=== PATIENT | female | born 1980 | race Caucasian/White ===

== ENCOUNTER 2016-12-14 22:10 | Emergency (ER) | payer BC ==
[~2016-12-14] VITALS: Ht 165.1 cm; Wt 88.5 kg
== END 2016-12-15 00:25 | disposition short-term general hospital (02) ==
LOC: ER 22:10
DX: N17.9 Acute kidney failure, unspecified (principal); D64.9 Anemia, unspecified; E87.5 Hyperkalemia; Z88.6 Allergy status to analgesic agent; Z88.2 Allergy status to sulfonamides; Z79.899 Other long term (current) drug therapy; Z90.49 Acquired absence of other specified parts of digestive tract; Z98.890 Other specified postprocedural states
CPT/HCPCS: J1885